=== PATIENT | female | born 1960 | race Caucasian/White ===

== ENCOUNTER 2019-02-06 14:03 | Inpatient (IN) | payer OTHER ==
[~2019-02-06] VITALS: Ht 152.4 cm; Wt 72.6 kg
--- NOTE | ~2019-02-06 | PROC ---
[facility] [address] [place] [address] PROCEDURE REPORT Name: LISSETT SILVA Room: [address] IN M.R.#: [id number] Admission: 02/06/19 Attend Phys: Annette Sosa Discharge: 02/09/19 Date of : 60 Report #: [id number] THIS REPORT FOR: //name// For GI report, please see the Provation report in Perceptive 7 content. By: [id number] Records Staff SRAVAN /MALISSA
--- NOTE | ~2019-02-06 | CON ---
[address] [address] CONSULTATION Name: LISSETT SILVA Room: [address] ADM IN M.R.#: [id number] Admission: 02/06/19 Attend Phys: Annette Sosa Discharge: Date of : 60 Report #: [id number] THIS REPORT FOR: //name// CC: Dr. Devang Kamara DICTATED BY: Martine Sánchez [facility] DATE OF SERVICE: 02/07/2019 Please note at the time of this dictation, the patient was seen and physically examined by myself. REASON FOR CONSULTATION: Nausea, vomiting and abdominal pain. HISTORY OF PRESENT ILLNESS: This is a pleasant 58-year-old female who presents with chief complaint of having ongoing nausea, vomiting, feeling bloated and increasing abdominal pain, which she states got significantly worse yesterday, prompting her to come in to the office. Initially, her pain was intermittent and felt bloated, especially with eating and then over the last several days, she started having worsening of the nausea and the vomiting, prompting her to come in because she felt so weak. She denies any fever or chills. She states with her emesis, there is no bright red blood or coffee ground emesis that is noted. She states that she was a little constipated as well when she came in. She has been noticing worsening of her GERD with all of these symptoms. Last EGD and colonoscopy was in May of this year with Dr. Cordero. She had an EGD that showed esophagus was completely normal and she had a 3 cm hiatal hernia, otherwise negative. Colonoscopy showed some diverticulosis in the ascending and sigmoid colon with some external hemorrhoids, otherwise was negative. ALLERGIES: No known drug allergies. MEDICATIONS: From home include aspirin, glucosamine, MiraLax, Ozempic, Dulcolax softeners, dicyclomine, ranitidine, Flexeril, Lexapro, Mirapex, Desyrel, Fosamax, Centrum, Wellbutrin, Amaryl, Tylenol, Zofran, Ultram, Lipitor and vitamin D. PAST MEDICAL HISTORY: Diabetes, history of kidney stones and kidney infection, hyperlipidemia, GERD, depression, osteopenia, arthritis, Heath syndrome, history of cerebrovascular accident. PAST SURGICAL HISTORY: She had a left nephrectomy, hysterectomy, right ankle surgery [place] [address] CONSULTATION Name: LISSETT SILVA Room: [address]#: [id number] Admission: 02/06/19 Attend Phys: Annette Sosa Discharge: Date of : 60 Report #: [id number] FAMILY HISTORY: Noncontributory. SOCIAL HISTORY: Alcohol socially. Denies any tobacco or illegal drug use. REVIEW OF SYSTEMS: Twelve-point review of systems is essentially negative except what is mentioned in the HPI. PHYSICAL EXAMINATION: VITAL SIGNS: Temperature 36.7, pulse 61, respirations 16, blood pressure 133/59. HEART: Regular rate and rhythm. LUNGS: Clear. ABDOMEN: Soft, positive bowel sounds in all 4 quadrants with epigastric tenderness noted to palpation. LABS: Hemoglobin on admission was 13.9, she is 12.1, white count is 5.7, platelets 218, GFR 64, total bilirubin 0.4, alkaline phosphatase 151, ALT is [address] AST is 52[address] CT showed markedly thickened pyloric channel and proximal duodenum with questionable ileus noted. IMPRESSION: 1. Nausea and vomiting. 2. Epigastric pain. 3. Gastroesophageal reflux disease, worsening. 4. Elevated liver function tests, likely secondary to duodenal inflammation. 5. Urinary tract infection, positive for nitrites. PLAN: 1. EGD today with Dr. Gaitan. 2. Further recommendations to be made once the procedure has been performed. Thank you for allowing us to participate in this patient's care. Please do not hesitate to call with any questions in regard to this consult. By: [id number] Gaitan MD /nt
[~2019-02-06 14:03] MED LIST: AMARYL1 MG; ASPIRIN81 M2 PO; ATIVAN0.5 MG PO; BISACODYL SUPP10 MG RECTAL; CALTRATE-600 W1 EACH PO; DUCODYL5 MG PO; ESTRATEST H.S.1 EACH PO; FIORICET 50-321 EACH PO; FISH OIL 1,0001 EAC5 PO; FLEXERIL PO; GLUCOPHAGE500 MG PO; GLUCOSAMINE SU500 MG PO; LEXAPRO20 MG PO; LIORESAL 10 MG10 MG PO; LIPITOR40 MG PO; MIRALAX17 GM PO; ONE-A-DAY WOMENS PO; PRILOSEC 20 MG20 MG PO; PROTONIX40 MG PO; REQUIP0.5 MG PO; RESTORIL30 MG PO; ST. JOHN'S WOR150 MG PO; TRAMADOL 50 MG50 MG PO; TYLENOL325 MG PO; VALIUM5 MG PO; VITAMIN D-32000 UNIT; VITAMIN E400 UNIT PO; ZOCOR 10 MG TAB10 MG PO; ZOFRAN ODT4 MG; ZOFRAN4 MG PO
[2019-02-06 14:32] VITALS: BP 139/70
[2019-02-06] MEDS ORDERED: AMARYL2 MG PO (14:47)
[2019-02-06] MEDS ORDERED: WELLBUTRIN SR150 M1 PO (14:47)
[2019-02-06] MEDS ORDERED: FOSAMAX 70 MG T70 MG PO (14:48)
[2019-02-06] MEDS ORDERED: MIRALAX119 GM PO ×2 (14:48→14:54)
[2019-02-06] MEDS ORDERED: CENTRUM MULTI150 MCG PO (14:48)
[2019-02-06 14:49] LABS: ABSOLUTE LYMPHOCYTES 1.1 thou/uL (0.8-5.3); ABSOLUTE MONOCYTES 0.8 thou/uL (0.0-1.2); ABSOLUTE NEUTROPHILS 6.3 thou/uL (1.6-8.1); BASOPHILS 0.6 %; EOSINOPHILS 0.4 %; HEMATOCRIT 40.5 % (37.0-47.0); HEMOGLOBIN 13.9 gm/dL (12.0-15.0); LYMPHOCYTES 13.5 %; MCH 34.1 pg (26.0-34.0); MCHC 34.2 g/dL (28.0-37.0); MCV 99.6 fL (80.0-100.0); MONOCYTES 9.9 %; MPV 7.7 fl. (7.2-11.1); NUCLEATED RBCS 0 /100WBC; PLATELET COUNT* 255 thou/uL (150-400); POLYS 75.6 %; RBC 4.06 mil/uL (4.20-5.00); RDW-CV 12.4 % (10.5-14.5); WBC 8.3 thou/uL (4.0-11.0)
[2019-02-06] MEDS ORDERED: TRAZODONE 150150 M1 PO (14:49)
[2019-02-06] MEDS ORDERED: ZANTAC 150MG T150 M1 PO ×2 (14:49→14:53)
[2019-02-06] MEDS ORDERED: MIRAPEX1 MG PO (14:49)
[2019-02-06] MEDS ORDERED: FLEXERIL PO (14:50)
[2019-02-06] MEDS ORDERED: LEXAPRO20 MG PO (14:50)
[2019-02-06] MEDS ORDERED: DICYCLOMINE HCL20 MG PO (14:53)
[2019-02-06] MEDS ORDERED: DULCOLAX STOOL100 M1 PO (14:54)
[2019-02-06] MEDS ORDERED: OZEMPIC0.25 MG/0. IM (14:54)
[2019-02-06] MEDS ORDERED: GLUCOSAMINE1000 MG PO (14:55)
[2019-02-06 14:56] LABS: CALCIUM 9.9 mg/dL (8.5-10.1); POTASSIUM 4.4 mmol/L (3.5-5.1)
[2019-02-06 15:01] LABS: ALBUMIN 3.2 g/dL (3.4-5.0); TOTAL BILIRUBIN 0.3 mg/dL (<0.1-1.0); TOTAL PROTEIN 6.8 g/dL (6.4-8.2)
[2019-02-06 15:09] LABS: URINE BILIRUBIN NEGATIVE (Negative); URINE BLOOD TRACE (Negative); URINE CLARITY CLOUDY; URINE COLOR YELLOW; URINE GLUCOSE-RANDOM 2+ (Negative); URINE KETONES NEGATIVE (Negative); URINE LEUKOCYTES-REFLEX 1+ (Negative); URINE PROTEIN TRACE (Negative); URINE SPECIFIC GRAVITY 1.015 (1.005-1.030); URINE UROBILINOGEN 0.2 E.U./dl (0.2-1.0)
[2019-02-06 15:10] LABS: URINE NITRITE-REFLEX POSITIVE (Negative)
[2019-02-06 15:16] LABS: SQUAMOUS 4-10 Moderate /LPF (0-3)
[2019-02-06 15:17] LABS: BACTERIA-REFLEX >30 Many /HPF (None Seen); CASTS None Seen /LPF (None Seen); CRYSTALS None Seen /LPF (None Seen); MUCUS None Seen strn/LPF (None Seen); URINE RBC 3-10 Few /HPF (0-2); WBC CLUMPS Few (None Seen)
[2019-02-06 22:25] VITALS: BP 115/48
[2019-02-06 22:30] VITALS: BP 115/50
[2019-02-07 04:30] LABS: HEMATOCRIT 35.5 % (37.0-47.0); HEMOGLOBIN 12.1 gm/dL (12.0-15.0); MCH 34.5 pg (26.0-34.0); MCHC 34.1 g/dL (28.0-37.0); MCV 101.2 fL (80.0-100.0); MPV 8.3 fl. (7.2-11.1); RBC 3.51 mil/uL (4.20-5.00); RDW-CV 12.2 % (10.5-14.5); WBC 5.7 thou/uL (4.0-11.0)
[2019-02-07 04:45] LABS: ALBUMIN 2.7 g/dL (3.4-5.0); CALCIUM 8.3 mg/dL (8.5-10.1); CREATININE 0.9 mg/dL (0.6-1.3); TOTAL BILIRUBIN 0.4 mg/dL (<0.1-1.0); TOTAL PROTEIN 5.6 g/dL (6.4-8.2)
--- NOTE | 2019-02-07 06:50 | NUR ---
PATIENT ARRIVED ON FLOOR FROM ER ABOUT 2214. PATIENT ADMISSION HISTORY AND ASSESSMENT WAS COMPLETED CHARTED. IV FLUIDS CONTINUE TO INFUSE AT 100 ML/HR. PATIENT HAD NO COMPLAINTS OF PAIN SINCE ARRIVAL TO THE FLOOR. PATIENT HAS BEEN NPO PER ORDERS. WILL CONTINUE TO MONITOR.
[2019-02-07 07:55] VITALS: BP 119/59
[2019-02-07 08:53] VITALS: BP 133/59
[2019-02-07 10:27] VITALS: BP 133/59
--- NOTE | 2019-02-07 14:37 | NUR ---
SW met with pt and pt to complete initial assessment, introduce self, and SW role. Pt alert, oriented. Pt lives at home with her . Pt has hx of CVA. Pt has RW, cane and support and assistance from pt . Pt and pt do not anticipate any dc needs at this time. SW to continue to follow.
--- NOTE | 2019-02-07 14:59 | EKG ---
[place] [address] ELECTROCARDIOGRAM REPORT Name: SHIRALISSETT Stacey Room: [address] ADM IN .R.#: [id number] Admission: 02/06/19 Attend Phys: Annette Sosa Discharge: Date of : 60 Report #: [id number] THIS REPORT FOR: //name// [facility] ED Test Date: 2019-02-06 Test Time: 14:54:03 Pat Name: LISSETT SILVA Department: Room: [facility] Gender: F Satellite Dish Technician: DYLAN : 1960 Requested By: Osiris Maguire Order Number: [id number] MD: Arthur Chaidez Measurements Intervals Sharon Rate: 76 P: 67 CA: 125 QRS: 4 QRSD: 97 T: 21 QT: 374 QTc: 421 Interpretive Statements Sinus rhythm Low voltage, extremity leads Compared to ECG 08/07/2015 02:38:54 Low QRS voltage now present Prolonged QT interval no longer present Electronically Signed On 02-07-2019 14:59:22 CDT by Arthur Chaidez [email or web address] <ELECTRONICALLY SIGNED> By: Arthur Chaidez MD, [facility] 02/07/19 1459 1454 1454 Arthur Chaidez MD, [facility] /EPI
[2019-02-07 16:04] VITALS: BP 123/57
--- NOTE | 2019-02-07 19:29 | NUR ---
PATIENT RESTING IN BED. PATIENT IS UP STANDBY ASSIST TO COMMODE. PATIENT DENIES ANY PAIN. PATIENT HAS GOOD APPETITE AND DENIES ANY NAUSEA. PATIENT HAD EGD THIS AFTERNOON WITHOUT INCIDENT. PATIENT DENIES ANY NEEDS AT THIS TIME. CALL LIGHT WITHIN REACH.
[2019-02-07 20:30] VITALS: BP 110/49
[2019-02-08 05:47] VITALS: BP 115/47
--- NOTE | 2019-02-08 06:32 | NUR ---
PATIENT WAS AWAKE MOST OF THE NIGHT. IV FLUIDS CONTINUE TO INFUSE ORDERED. PATIENT HAD NO COMPLAINTS OF PAIN. PATIENT PUT CALL LIGHT ON AT ABOUT 0545 PATIENT WAS FOUND SITTING ON HER BOTTOM. STATED SHE FELL ASLEEP STANDING UP. STATES SHE LANDED ON HER BOTTOM NO COMPLAINTS OF PAIN. VSS AT THIS TIME. PATIENT HAS BEEN NPO FOR MRCP TODAY. WILL CONTINUE TO MONITOR.
[2019-02-08 08:20] VITALS: BP 142/82
--- NOTE | 2019-02-08 14:06 | PATH ---
[address] [address] PATHOLOGY RPT PROCEDURE Name: LISSETT BARILLAS Room: [address] IN .R.#: [id number] Admission: 02/06/19 Date of : 60 Discharge: Report #: [id number] Path Case #: [id number] [facility] Accession Number: [id number] . 01 Material submitted: . duodenum - BIOPSY OF DUODENUM . 01 Clinical history: . None provided . 02 Diagnosis: Biopsy of duodenum: - Nonspecific severe active duodenitis with erosion, negative for granulomas, viral inclusions and dysplasia. (PRASHANTH:deni; 02/08/2019) QMS 02/08/2019 1151 Local . 02 Electronically signed: . Jose Ramon Santos MD, Pathologist NPI- [id number] . 01 Gross description: . Received in formalin labeled "Lissett Barillas, biopsy of duodenum," are 3 segments of brice soft tissue measuring 0.9 x 0.8 x 0.3 cm in aggregate dimensions and ranging from 0.3 to 0.5 cm in maximum dimension. The specimen is submitted entirely in cassette A1. (TSD; 02/07/2019) TOB/TOB 02/07/2019 2257 Local . 02 Pathologist provided ICD-10: K29.80 . 02 CPT . 329550 Specimen Comment: A courtesy copy of this report has been sent to Specimen Comment: [phone]. Specimen Comment: Report sent to ,DR SHOEMAKER / DR CORADO Performed at: [address] [facility] [address], [place], [place] [id number] MD Greg Johansen MD Phone: [phone] Performed at: [address] [facility] [address] [address], [place], [place] [id number] MD Jose Ramon Santos MD Phone: [phone]
[2019-02-08 15:24] LABS: ABSOLUTE BASOPHILS 0.1 thou/uL (0.0-0.2); ABSOLUTE EOSINOPHILS 0.1 thou/uL (0.0-0.7); ABSOLUTE MONOCYTES 0.5 thou/uL (0.0-1.2); BASOPHILS 1.3 %; EOSINOPHILS 1.9 %; HEMATOCRIT 37.5 % (37.0-47.0); HEMOGLOBIN 12.9 gm/dL (12.0-15.0); LYMPHOCYTES 17.7 %; MCH 34.3 pg (26.0-34.0); MCHC 34.5 g/dL (28.0-37.0); MCV 99.3 fL (80.0-100.0); MONOCYTES 9.2 %; MPV 8.4 fl. (7.2-11.1); NUCLEATED RBCS 0 /100WBC; PLATELET COUNT* 246 thou/uL (150-400); POLYS 69.9 %; RBC 3.78 mil/uL (4.20-5.00); RDW-CV 11.8 % (10.5-14.5); WBC 5.8 thou/uL (4.0-11.0)
[2019-02-08 15:36] LABS: ALBUMIN 3.4 g/dL (3.4-5.0); ALKALINE PHOSPHATASE 170 U/L (46-116); AMMONIA < 10 umol/L (11-32); ANION GAP 11 mmol/L (7-16); BUN 14 mg/dL (7-18); CALCIUM 8.9 mg/dL (8.5-10.1); CHLORIDE 105 mmol/L (98-107); CO2 22 mmol/L (21-32); GLUCOSE 178 mg/dL (70-99); MAGNESIUM 1.9 mg/dL (1.8-2.4); POTASSIUM 3.9 mmol/L (3.5-5.1); SGOT 29 U/L (15-37); SGPT 68 U/L (30-65); SODIUM 138 mmol/L (136-145); TOTAL BILIRUBIN 0.5 mg/dL (<0.1-1.0); TOTAL PROTEIN 6.7 g/dL (6.4-8.2)
--- NOTE | 2019-02-08 18:49 | NUR ---
PT A&OX4 VSS. AM MEDS DELAYED DT NPO STATUS/MRI. MEDS ADMINISTERED ONCE PT HAD MEAL TRAY. PT REQUIRED ONE TIME DOSE IV ATIVAN UPON ARRIVING IN RADIOLOGY FOR MRI. PT RESTLESS, BUT ENCOURAGED TO STAY IN BED FOR SAFETY AND TO PREVENT FALLS. PT OBSERVED TO DISARM HER BED ALARM. PT ASSISTED TO BEDSIDE COMMODE WITH SBA AND USE OF PT CANE FROM HOME. MRI RESULTS REPORTED TO DR NEGRO. UA ORDERED, BUT NOT COLLECTED AT THIS TIME. PT CONCERNED THAT PT IS ACTING OUT R/T LACK OF SLEEP AND REQUESTS SHE BE "LEFT ALONE TO SLEEP". IV FLUIDS DISCONNECTED FROM PT AT THIS TIME SHE WAS RESTLESS.
[2019-02-08 20:00] VITALS: BP 127/63
[2019-02-09 03:29] LABS: URINE BILIRUBIN NEGATIVE (Negative); URINE BLOOD NEGATIVE (Negative); URINE CLARITY CLEAR; URINE COLOR YELLOW; URINE GLUCOSE-RANDOM TRACE (Negative); URINE KETONES NEGATIVE (Negative); URINE LEUKOCYTES NEGATIVE (Negative); URINE NITRITE NEGATIVE (Negative); URINE PROTEIN NEGATIVE (Negative); URINE UROBILINOGEN 0.2 E.U./dl (0.2-1.0)
--- NOTE | 2019-02-09 05:08 | NUR ---
PATIENT UP WITH ASSIST X1 BUT SOMETIMES WONT USE CALL LIGHT. SHE IS ABLE TO GET TO COMMODE. REPORTING PAIN 7/10 IN BOTH HER LEGS. SHE WAS GIVEN TORODOL. HER CONFUSION WAS NOT APPARENT THIS SHIFT PREVIOUSLY REPORTED. SLEPT MOST OF SHIFT. WILL CONTINUE TO MONITOR
[2019-02-09 07:25] VITALS: BP 131/59
[2019-02-09] MEDS ORDERED: CARAFATE1 GM PO (10:48)
[2019-02-09] MEDS ORDERED: CEFDINIR300 MG PO (11:02)
[2019-02-09 11:43] VITALS: BP 131/59
[2019-02-09] MEDS ORDERED: PROTONIX40 M2 PO (12:23)
== END 2019-02-09 13:10 | disposition home or self-care (01) | DRG 383 ==
LOC: M.ERS 14:03 → M.TBA-ER 16:15 → M.3W 16:15
PROVIDERS: Internal Medicine; Nurse Practitioner Family; ADMIT Internal Medicine
PROC: 0DB98ZX Excision of Duodenum, Via Natural or Artificial Opening Endoscopic, Diagnostic (ICD-10-PCS; principal; 2019-02-07)
DX: K26.9 Duodenal ulcer, unspecified as acute or chronic, without hemorrhage or perforation (principal); G92 Toxic encephalopathy; N39.0 Urinary tract infection, site not specified; I69.354 Hemiplegia and hemiparesis following cerebral infarction affecting left non-dominant side; E44.0 Moderate protein-calorie malnutrition; K29.80 Duodenitis without bleeding; E11.9 Type 2 diabetes mellitus without complications; E78.5 Hyperlipidemia, unspecified; K21.9 Gastro-esophageal reflux disease without esophagitis; F32.9 Major depressive disorder, single episode, unspecified; M19.90 Unspecified osteoarthritis, unspecified site; M81.0 Age-related osteoporosis without current pathological fracture; K75.9 Inflammatory liver disease, unspecified; D64.9 Anemia, unspecified; K21.0 Gastro-esophageal reflux disease with esophagitis; K44.9 Diaphragmatic hernia without obstruction or gangrene; Z87.442 Personal history of urinary calculi; Z68.31 Body mass index [BMI] 31.0-31.9, adult; Q96.9 Turner's syndrome, unspecified; Z90.710 Acquired absence of both cervix and uterus; Z90.5 Acquired absence of kidney; Z90.49 Acquired absence of other specified parts of digestive tract; Z79.899 Other long term (current) drug therapy

== ENCOUNTER → 2019-11-19 | Outpatient (CLI) | payer OTHER ==
[~2019-11-19] MED LIST changes: +AMARYL2 MG PO; +CARAFATE1 GM PO; +CEFDINIR300 MG PO; +CENTRUM MULTI150 MCG PO; +DICYCLOMINE HCL20 MG PO; +DULCOLAX STOOL100 M1 PO; +FOSAMAX 70 MG T70 MG PO; +GLUCOSAMINE1000 MG PO; +MIRALAX119 GM PO; +MIRAPEX1 MG PO; +OZEMPIC0.25 MG/0. IM; +PROTONIX40 M2 PO; +TRAZODONE 150150 M1 PO; +WELLBUTRIN SR150 M1 PO; +ZANTAC 150MG T150 M1 PO
== END ==
LOC: M.LAB 11:52
PROVIDERS: ATTEND Podiatrist Foot Surgery
DX: Z11.59 Encounter for screening for other viral diseases (principal)